=== PATIENT | female | born 2000 | race Caucasian/White ===

== ENCOUNTER 2023-07-08 06:31 | Emergency (ER) | payer MEDICAID ==
[~2023-07-08] VITALS: Ht 149.9 cm; Wt 68.0 kg
[2023-07-08 06:39] VITALS: BP 124/79; RESP 16; O2SAT 99
[2023-07-08 06:41] VITALS: PULSE 104
[2023-07-08 07:19] LABS: BASOPHILS % 0.2 % (0.0-2.0); DIFFERENTIAL COMMENT 0; EOSINOPHILS % 0.4 % (0.0-5.0); HEMATOCRIT. 36.3 % (36.0-48.0); HEMOGLOBIN. 12.1 g/dL (12.0-16.0); MEAN CORPUSCULAR HEMOGLOBIN 26.3 pg (28.0-32.0); MEAN CORPUSCULAR HGB CONC 33.2 g/dL (31.0-37.0); MEAN CORPUSCULAR VOLUME 79.3 fL (81.0-99.0); MEAN PLATELET VOLUME 9.3 fl (7.4-10.4); MONOCYTES % 5.9 % (2.0-8.0); NEUTROPHILS % 78.5 % (40.0-76.0); PLATELET 241 x1000/uL (130-400); RED BLOOD CELL COUNT 4.58 mill/uL (4.2-5.4); RED CELL DISTRIBUTION WIDTH 15.5 % (11.6-14.6); WHITE BLOOD COUNT 9.3 x1000/uL (4.5-11.0)
[2023-07-08 07:31] LABS: UREA NITROGEN BLOOD 8 mg/dL (9-23)
[2023-07-08 07:32] LABS: ALANINE AMINOTRANSFERASE 16 IU/L (10-49); ALBUMIN 4.2 g/dL (3.2-4.8); ASPARTATE AMINOTRANSFERASE 20 IU/L (<34)
[2023-07-08 07:33] LABS: BILIRUBIN TOTAL 0.2 mg/dL (0.1-1.0); PROTEIN TOTAL 7.2 g/dL (6.0-8.3)
[2023-07-08 07:44] LABS: B-HCG QUANTITATIVE 6503 mIU/mL (<3)
[2023-07-08] MEDS: METOCLOPRAMIDE HCL 10MG TABLET PO ONE (08:49)
[2023-07-08 08:50] VITALS: TEMP 98.3
[2023-07-08] MEDS: ACETAMINOPHEN 325MG TABLET PO ONE (08:50)
[2023-07-08 09:05] LABS: CHLORIDE 107 mEq/L (98-107); POTASSIUM 3.7 mEq/L (3.5-5.1); SODIUM 137 mEq/L (136-145)
[2023-07-08 09:08] LABS: CARBON DIOXIDE 21 mEq/L (21-32)
[2023-07-08 09:13] LABS: BILIRUBIN DIRECT < 0.1 mg/dL (<=3.0); CREATININE 0.7 mg/dL (0.6-1.0); GLUCOSE 105 mg/dL (70-105)
== END 2023-07-08 13:49 | disposition left against medical advice (07) ==
LOC: ER 06:57 → CANBEDREQ 12:48 → ER 13:49
DX: O26.891 Other specified pregnancy related conditions, first trimester (principal); Z87.19 Personal history of other diseases of the digestive system; Z3A.01 Less than 8 weeks gestation of pregnancy
CPT/HCPCS: 99284; 76705; 76801; 80076; 80048; 84702; 83690; 85025; 36415; 76817; J8597